=== PATIENT | male | born 1960 | race Caucasian/White ===

== ENCOUNTER 2024-09-24 07:52 | Emergency (ER) | payer BC ==
[2024-09-24] MEDS: Ketorolac 30 MG/ML SDV IM ONE (08:12)
[2024-09-24] MEDS: fentaNYL 100 MCG/2 ML SDV SUBCUT SCH (08:56)
[2024-09-24] MEDS: fentaNYL 100 MCG/2 ML SDV ONE (09:02)
[2024-09-24] MEDS ORDERED: Ibuprofen 800 MG Tab ONE (09:30)
[2024-09-24] MEDS ORDERED: Cyclobenzaprine 10 MG Tab ONE (09:30)
[2024-09-24] MEDS ORDERED: Acetaminophen/oxyCODONE 325-5 MG Tab ONE (09:30)
== END 2024-09-24 10:00 | disposition home or self-care (01) ==
LOC: LB.ED 07:52
DX: S22.32XA Fracture of one rib, left side, initial encounter for closed fracture (principal); I10 Essential (primary) hypertension; W18.49XA Other slipping, tripping and stumbling without falling, initial encounter
CPT/HCPCS: 71250; 96372; 99283; 99284; A9270; J1885; J3010